=== PATIENT | male | born 1945 | race Caucasian/White ===

== ENCOUNTER 2019-11-12 04:38 | Day surgery (SDC) | payer OTHER ==
[2019-11-10 16:01] VITALS: BMI 28.7
[2019-11-12] MEDS ORDERED: LIDOCAINE HCL 1%, 10 MG/ML (20ML VIAL) ONE (07:43)
[2019-11-12] MEDS ORDERED: BUPIVACAINE HCL/PF 0.25% (2.5MG/ML) 10 ML VIAL ONE (07:44)
[2019-11-12] MEDS ORDERED: PROPOFOL 20 ML ONE ×2 (07:55)
[2019-11-12] MEDS ORDERED: MIDAZOLAM HCL 2 MG/2 ML SINGLE DOSE VIAL ONE (07:55)
[2019-11-12] MEDS ORDERED: LIDOCAINE HCL/PF 2% SDV 5ML VIAL ONE (07:55)
[2019-11-12] MEDS ORDERED: ceFAZolin SODIUM 1 GM VIAL ONE (08:09)
[2019-11-12] MEDS ORDERED: ceFAZolin SODIUM 1 GM VIAL IVPB ONE (08:11)
[2019-11-12] MEDS ORDERED: LIDOCAINE HCL 1%, 10 MG/ML (20ML VIAL) NR ONE (08:11)
[2019-11-12] MEDS ORDERED: KETOROLAC TROMETHAMINE 30 MG/1 ML VIAL ONE (08:21)
[2019-11-12] MEDS ORDERED: BUPIVACAINE HCL/PF 0.25% (2.5MG/ML) 10 ML VIAL IJ ONE (08:49)
[2019-11-12] MEDS ORDERED: ONDANSETRON 4 MG/2 ML VIAL IVPUSH PRN (09:04)
[2019-11-12] MEDS ORDERED: oxyCODONE HCL 5 MG TABLET PO PRN (09:04)
[2019-11-12] MEDS ORDERED: LACTATED RINGERS SOLUTION 1,000 ML IV SCH (09:15)
[2019-11-12 14:29] VITALS: BP 127/74; PULSE 55; TEMP 97
--- NOTE | 2019-11-15 12:26 | PATH ---
Surgical Pathology Report Patient Name: CARMEL KOO [facility]. Rec. #: [id number] /Age/Gender: 1945 (Age: 74) / M Account: [id number] Location: [facility] Taken: 11/12/2019 Received: 11/12/2019 Reported: 11/15/2019 Physicians: Nilesh Molina DPM Specimen(s) Received BONE LEFT HALLUX Clinical History Ulcer with hallux exostosis left big toe Final Diagnosis BONE, HALLUX, LEFT, EXOSTECTOMY: BONE WITH MILD ACUTE OSTEOMYELITIS AND REACTIVE CHANGES. ADHERENT FIBROCONNECTIVE TISSUE WITH ACUTE AND CHRONIC INFLAMMATION. Electronically Signed Mar Mares M.D. Gross Description Received in formalin labeled "bone left hallux," is a 1.2 x 0.5 x 0.5 cm ayoub-brown portion of bone. The specimen is bisected and entirely submitted in one cassette, following decalcification. 11/12/201911/12/2019
--- NOTE | 2019-11-16 11:59 | OP ---
DATE OF OPERATION: 11/12/2019 SURGEON: Nilesh Molina DPM PREPROCEDURE DIAGNOSIS: Left foot plantar hallux exostosis. POSTPROCEDURE DIAGNOSIS: Left foot plantar hallux exostosis. PROCEDURE: Left hallux exostectomy, left foot. PATHOLOGY: Bone and soft tissue. ANESTHESIA: Local with MAC. HEMOSTASIS: Pneumatic ankle tourniquet at 250 mmHg. ESTIMATED BLOOD LOSS: Minimal. MATERIALS: Betadine-soaked Adaptic, 4 x 4, Kerlix, Coban, 3-0 Vicryl, 4-0 nylon. INJECTABLES: Preop 50 mL total of 1% lidocaine plain. CONDITION: Stable. COMPLICATIONS: None. DESCRIPTION OF THE PROCEDURE: The patient was brought to the operating room and placed on the operating room table in the supine position. After appropriate timeout procedures, administration of preoperative antibiotics, and identification of the procedure, MAC anesthesia was initiated by the anesthesia team. After adequate sedation, local anesthetic block was administered to the left foot utilizing 15 mL of 1% lidocaine plain for a total of 50 mL being used. A well-padded pneumatic ankle tourniquet was then applied to the left ankle. The left foot was then prepped and draped in the usual aseptic manner. An Esmarch bandage was then utilized to exsanguinate the patient's left foot, and the tourniquet was inflated to 250 mmHg. The surgery began in the following manner. Attention was directed to the distal aspect of the left hallux. Utilizing a 15-blade, a longitudinal incision measuring approximately 4 cm in length was made directly over the distal tuft of the hallux. The incision was then deepened through subcutaneous tissues sharply and bluntly, with care taken to identify and retract all vital neurovascular structures. After the bone had been specifically exposed, the distal one-third of the distal phalanx was excised using a bone cutter and removed from the operative site. All rough edges were then smoothed down using a bone rasp, and the correction of the deformity was assessed at this time and noted to be excellent. Surgical site was then copiously irrigated with normal saline mix. The subcutaneous tissue was reapproximated using 3-0 Vicryl, and the skin was closed using 4-0 nylon. A dressing was then applied utilizing Betadine-soaked Adaptic, 4 x 4's, sterile Esther and Coban. The pneumatic ankle tourniquet was then deflated, and a prompt hyperemic response was noted to the left foot. The patient tolerated the above anesthesia and surgical procedure well and left the operating room to the recovery area with vital signs stable and neurovascular status intact to the left foot. NILESH MOLINA DPM [id number]
== END 2019-11-12 11:50 | disposition home or self-care (01) ==
LOC: EDBD → JASU-SURG 04:38
PROVIDERS: ATTEND Podiatrist Foot Surgery
PROC: 0QBP0ZZ Excision of Left Metatarsal, Open Approach (ICD-10-PCS; principal; 2019-11-12 08:00)
DX: M25.775 Osteophyte, left foot (principal); M89.9 Disorder of bone, unspecified
CPT/HCPCS: 88305-TC; 88311-TC; 94760